=== PATIENT | male | born 2000 | race Caucasian/White ===

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

== ENCOUNTER 2022-02-17 20:24 | Emergency (ER) | payer BC ==
[2022-02-17 20:37] VITALS: BP 132/78; PULSE 77
[2022-02-17] MEDS ORDERED: Fluorescein 1 MG Ophth Strip EYERT ONE (20:46)
[2022-02-17] MEDS ORDERED: Ciprofloxacin 0.3% Ophth Soln 5 ML Bottle EYERT ONE (21:25)
== END 2022-02-17 21:15 | disposition home or self-care (01) ==
LOC: JD.ED 20:24
DX: S05.01XA Injury of conjunctiva and corneal abrasion without foreign body, right eye, initial encounter (principal); W45.8XXA Other foreign body or object entering through skin, initial encounter
CPT/HCPCS: 99283; A9270